=== PATIENT | female | born 1990 | race Caucasian/White ===

== ENCOUNTER 2019-05-31 09:08 | Emergency (ER) | payer OTHER ==
[~2019-05-31] VITALS: Ht 175.3 cm; Wt 80.7 kg
[2019-05-31] MEDS ORDERED: ACETAMINOPHEN-1 EAC2 PO (09:56)
[2019-05-31] MEDS ORDERED: IBUPROFEN 800800 MG PO (09:56)
[2019-05-31 10:06] LABS: ABSOLUTE BASOPHILS 0.1 thou/uL (0.0-0.2); ABSOLUTE EOSINOPHILS 0.1 thou/uL (0.0-0.7); ABSOLUTE LYMPHOCYTES 1.8 thou/uL (0.8-5.3); ABSOLUTE MONOCYTES 0.8 thou/uL (0.0-1.2); ABSOLUTE NEUTROPHILS 4.2 thou/uL (1.6-8.1); BASOPHILS 1.2 %; EOSINOPHILS 2.1 %; HEMATOCRIT 37.1 % (37.0-47.0); HEMOGLOBIN 12.9 gm/dL (12.0-15.0); LYMPHOCYTES 25.2 %; MCH 31.4 pg (26.0-34.0); MCHC 34.8 g/dL (28.0-37.0); MCV 90.1 fL (80.0-100.0); MONOCYTES 11.7 %; MPV 8.1 fl. (7.2-11.1); NUCLEATED RBCS 0 /100WBC; PLATELET COUNT* 467 thou/uL (150-400); POLYS 59.8 %; RBC 4.12 mil/uL (4.20-5.00); RDW-CV 12.5 % (10.5-14.5)
[2019-05-31 10:10] LABS: BE 0.9 mmol/L (-2 to +3); PCO2 32.2 mmHg (35.0-45.0); PO2 103.1 mmHg (75.0-100.0); pH 7.484 (7.340-7.450)
[2019-05-31 10:14] LABS: CREATININE 0.8 mg/dL (0.6-1.3); POTASSIUM 3.3 mmol/L (3.5-5.1)
[2019-05-31 10:19] LABS: ALBUMIN 4.5 g/dL (3.4-5.0); TOTAL PROTEIN 8.2 g/dL (6.4-8.2)
[2019-05-31 10:39] VITALS: BP 118/72
== END 2019-05-31 10:35 | disposition home or self-care (01) ==
LOC: M.ERS 09:08
PROVIDERS: Personal Emergency Response Attendant
DX: K03.2 Erosion of teeth (principal); K02.9 Dental caries, unspecified; Z91.040 Latex allergy status; Z88.0 Allergy status to penicillin